=== PATIENT | female | born 1980 | race Caucasian/White ===

== ENCOUNTER → 2019-02-03 07:50 | Outpatient (CLI) | payer OTHER, SELFPAY ==
--- NOTE | 2019-02-03 07:56 | CT_ITS ---
STUDY: CT MAXILLOFACIAL SINUSES REASON FOR EXAM: Female, 38 years old. Sinusitis. RADIATION DOSAGE (If Supplied By Facility): CTDIvol = ( 33.06 ) mGy, DLP = ( 759.47 ) mGycm TECHNIQUE: The patient was scanned in a multi detector CT scanner. High resolution axial imaging was performed without the administration of intravenous contrast material. Sagittal and coronal images were reconstructed. Individualized dose optimization techniques were used for this CT. COMPARISON: None. FINDINGS: FRONTAL SINUSES: Normal aeration, without mucosal inflammatory disease. ETHMOIDAL SINUSES: Normal aeration, without mucosal inflammatory disease. MAXILLARY SINUSES: Normal aeration, without mucosal inflammatory disease. SPHENOIDAL SINUSES: Normal aeration, without mucosal inflammatory disease. There is patency of the bilateral maxillary infundibuli with normal uncinate processes, ethmoid bullae, and hiatus semilunaris. Normal bilateral middle turbinates. Normal bilateral inferior turbinates. Normal midline nasal septum. There is patency of the bilateral nasal airways. There are numerous absent teeth. The visualized osseous structures are otherwise normal. The visualized bilateral orbital contents are normal. CT/Sinus/Facial Bone IMPRESSION: Normal CT examination of the maxillofacial sinuses. Incidental note of numerous missing teeth. Electronically Signed: Jeb Dewey MD at 17:23 EDT , Service support ,
== END ==
LOC: CT 07:52
PROVIDERS: Family Provider Internal Medicine; PCP Internal Medicine; Referring Provider Otolaryngology; Visit Provider Otolaryngology
DX: J32.9 Chronic sinusitis, unspecified (principal)
CPT/HCPCS: 70486

== ENCOUNTER → 2019-03-27 13:58 | Outpatient (CLI) | payer OTHER, SELFPAY ==
[2016-12-09 18:51] VITALS: BMI 32.9
[2019-03-27 14:29] LABS: Absolute Lymphocyte Count 2.13 X10^3/uL (0.83-4.51); Absolute Neutrophil Count 5.6 X10^3/uL (2.0-7.7); Basophil# 0.05 X10^3/uL; Basophil% 0.6 % (0-1); Eosinophil# 0.09 X10^3/uL; Eosinophils% 1.1 % (0-5); Hematocrit 39.6 % (37-47); Hemoglobin 13.2 g/dL (12.0-15.0); Lymphocyte # 2.13 X10^3/ul (4.0); Lymphocyte % 25.1 % (19-41); Mean Corp Hgb Conc 33.3 g/dL (32-36); Mean Corpuscular Hgb 26.1 pg (27.0-32.0); Mean Corpuscular Volume 78.4 fL (81-99); Mean Platelet Vol. 11.3 fl (6.2-12.0); Monocyte% 7.1 % (0-10); NRBC Flagged by Analyzer 0 % (0-5); Neutrophil # 5.55 X10^3/uL (2.7-7.7); Neutrophil % 65.3 % (47-70); Platelet Count 297 K/mm3 (150-450); RBC Distribution Width CV 13.7 % (11.6-14.6); Red Blood Count 5.05 M/mm3 (4.2-5.4); White Blood Count 8.5 K/mm3 (4.4-11.0)
== END ==
PROVIDERS: Family Provider Internal Medicine; PCP Internal Medicine; Referring Provider Otolaryngology; Visit Provider Otolaryngology
DX: Z01.818 Encounter for other preprocedural examination (principal)
CPT/HCPCS: 36415; 85025

== ENCOUNTER 2020-06-06 12:59 | Emergency (ER) | payer OTHER, SELFPAY ==
[2020-06-06 13:00] VITALS: BP 165/107; PULSE 79; RESP 16; TEMP 36.4; O2SAT 98; BMI 34.7
--- NOTE | 2020-06-06 13:28 | ED.VIS.GEN ---
History of Present Illness Chief Complaint: Flank Pain Informant: Patient Narrative: 40-year-old female with history of kidney stones presenting with left flank pain. She states this started this morning. She has associated symptoms of nausea/vomiting. She has no fever or chills. No cough or cold symptoms. She states that the pain in her left flank radiates to her groin. It feels like previous kidney stone she has had. Past Medical History - Allergies and Home Meds Allergies/Adverse Reactions: Allergies No Known Allergies Allergy (Verified 06/06/20 13:01) Primary Care Physician: Alma Gomes DO [Primary Care Provider] - Past Medical History: - - Kidney stones Surgical History: noncontributory Smoking Status: Former smoker Review of Systems General: Denies: Chills, Fever, Sweats Eyes: Denies: Visual changes - bilaterally, Diplopia ENT: Denies: Rhinorrhea, Sore throat Cardiovascular: Denies: Chest pain, Palpitations Respiratory: Denies: Dyspnea, Cough, Dyspnea on exertion Gastrointestinal: Reports: Abdominal pain, Nausea, Vomiting. Denies: Diarrhea, Constipation Genitourinary: Reports: Dysuria Musculoskeletal: Reports: Back pain Skin: Denies: Rash, Abscess Neurological: Denies: Headache, Parasthesia, Numbness Physical Exam Vital Signs/Narrative: Vital Signs Temp Pulse Resp BP Pulse Ox 06/06/20 13:00 97.6 F L 79 16 165/107 H 98 Inital Vital Signs reviewed: Yes General: Well nourished, Acute Distress Head: Normocephalic, Atraumatic Eyes: Perrl ENT: Moist mucous membranes, No rhinorrhea Abdomen: Soft, Nondistended Back: CVA tenderness - Right. Negative for: Spinal tenderness Skin: Normal color, No rash, Diaphoresis. Negative for: Cyanosis Neurological: Alert, Oriented x3 Psychological: Tearful, Agitated Diagnostic/Tx/Re-eval Clinical Impression(s) from Imaging Studies Abdomen/Pelvis CT 06/06/20 14:01 IMPRESSION: Findings suggestive of a recently passed 2 mm calculus from the left ureter. The calculus is at the base of the bladder on the left side. Small umbilical hernia containing fat. Small left ovarian cyst. IUD is seen within the uterus. Stable adenoma in the left adrenal gland. Electronically Signed: Eliseo Jeffries, at 14:53 EST , Service support , Laboratory Data 06/06/20 06/06/20 13:50 14:40 Sodium 139 Potassium 3.4 L Chloride 104 Carbon Dioxide 29.0 Anion Gap 6 BUN 7 Creatinine 0.72 Estim Creat Clear Calc 82.15 Est GFR (MDRD) Af Amer 116 Est GFR (MDRD) Non-Af 96 BUN/Creatinine Ratio 9.8 L Glucose 99 Calcium 8.4 L Urine Color Yellow Urine Clarity Sl. Cloudy Urine pH 7.0 Ur Specific [place] 1.005 Urine Protein Negative Urine Glucose (UA) Normal Urine Ketones Negative Urine Occult Blood 25 H Urine Nitrite Negative Urine Bilirubin Negative Urine Urobilinogen Normal Ur Leukocyte Esterase Negative Urine RBC 0-5 SEEN Urine WBC 0 SEEN Ur Squamous Epith Cells 0-5 SEEN Urine Bacteria 1+ Urine Mucus 0 SEEN - Medical Decision Making 40-year-old female presenting with history of kidney stones and left flank pain. On my initial evaluation she was vomiting into the trash can and was diaphoretic holding her left flank. I did give her morphine, Zofran, Toradol. She had no concern for . She felt much more comfortable after being medicated. Urinalysis shows hematuria without infection. BMP unremarkable. CT abdomen pelvis without contrast shows a 2 mm stone that is passed into the bladder. Patient feels more comfortable now. She is given oxycodone prior to discharge. I will give her pain and nausea medicine for home as well. She is given return precautions. Impression: 1. Left flank pain 2. Cystoscopy with 3. Hematuria ED Disposition - Plan for ED Patient: Disposition: Home or Assisted Living Instructions: ED Kidney Stone w/ Colic Prescriptions: Tamsulosin HCl [Flomax] 0.4 mg PO DAILY #7 cap Prescription Printed Naproxen [Naprosyn] 500 mg PO BID PRN #30 tab Transmission Status: Received by [facility] Oxycodone HCl/Acetaminophen [Percocet 5/325] 1 tab PO Q6H PRN PRN 3 Days #12 tab PRN Reason: Pain Prescription Printed Ondansetron [Zofran Odt] 4 mg PO Q8H PRN PRN #14 tab PRN Reason: Nausea Prescription Printed Referrals: Alma Gomes DO [Primary Care Provider] -
[2020-06-06] MEDS: Ketorolac 15 MG/ML Vial IV (13:46)
[2020-06-06] MEDS: Ondansetron 4 MG/2 ML Vial IV (13:47)
[2020-06-06] MEDS: Morphine 4 MG/ML Syringe IV ×2 (13:47→14:38)
--- NOTE | 2020-06-06 14:01 | CT_ITS ---
STUDY: CT ABDOMEN AND PELVIS WITHOUT CONTRAST REASON FOR EXAM: Female, 40 years old. LEFT FLANK PAIN, HX [place] RADIATION DOSAGE (If Supplied By Facility): CTDIvol = ( 14.66 ) mGy, DLP = ( 711.79 ) mGycm TECHNIQUE: Transaxial images were obtained from the dome of the diaphragm to the symphysis pubis without oral contrast, and without intravenous contrast. Sagittal and coronal images were reconstructed. Individualized dose optimization techniques were used for this CT. COMPARISON: Comparison is made with prior study dated 12/09/2016. FINDINGS: The visualized lung bases are unremarkable. The visualized portions of the heart are within normal limits. There is decreased attenuation of the liver consistent with steatosis. Mild hepatomegaly. Normal gallbladder and extrahepatic biliary system. Normal spleen. Normal pancreas. There is a small, circumscribed, smooth, low attenuation left adrenal mass, consistent with an adrenal adenoma. It measures 2.2 cm. This is essentially unchanged. Normal right adrenal gland. Normal right kidney. Minimal fullness of the left renal pelvis and proximal left ureter. Normal visualized stomach. Normal small intestine. Normal colon. The appendix is visualized and appears normal. There is scattered atherosclerotic calcification of the abdominal aorta, without a demonstrated aneurysm. Normal inferior vena cava. There is borderline retroperitoneal lymphadenopathy with enlarged nodes no greater than 10mm in the short axis diameter. A 2 mm calculus is seen at the base of the bladder on the left side. This most likely represents a recently passed left ureteral calculus. IUD is seen within the uterus. There is a 2.5 cm cyst in the left ovary. A tubal ligation clip is seen in the right adnexal region. Once again, a tubal ligation clip is seen within the mesenteric fat in the right anterior abdomen. There is a small umbilical hernia containing fat. Normal osseous structures. CT/Abdomen/Pelvis without Cont IMPRESSION: Findings suggestive of a recently passed 2 mm calculus from the left ureter. The calculus is at the base of the bladder on the left side. Small umbilical hernia containing fat. Small left ovarian cyst. IUD is seen within the uterus. Stable adenoma in the left adrenal gland. Electronically Signed: Eliseo Jeffries, at 14:53 EST , Service support ,
[2020-06-06 14:15] LABS: Anion Gap 6 (5-15); BUN 7 mg/dL (7-18); BUN/Creat Ratio 9.8 RATIO (10-20); Calcium,Total 8.4 mg/dL (8.5-10.1); Chloride 104 mmol/L (98-107); Creatinine, Serum 0.72 mg/dL (0.55-1.02); EST Glomerular Filtration Rate 96 mL/min (>60); Est Glom Filt Rate - Afr Amer 116 mL/min (>60); Estimated Creatinine Clearance 82.15 ml/min; Glucose 99 mg/dL (74-106); Potassium 3.4 mmol/L (3.5-5.1); Sodium Level 139 mmol/L (136-145)
[2020-06-06 14:53] LABS: Mucous, Urine 0 SEEN /hpf (<or=2+); White Blood Cells 0 SEEN /hpf (0-5)
[2020-06-06 14:56] LABS: Color, Urine Yellow (Yellow); Glucose, Dipstick Normal (Normal); Ketone-Dipstick Negative (Negative); Leukocyte Esterase-Dipstick Negative /ul (Negative); Nitrite-Dipstick Negative (Negative); Occult Blood-Urine 25 /ul (Negative); Protein-Dipstick Negative (Negative); Specific Gravity, Urine 1.005 (1.002-1.030); Urine Bilirubin Dipstick Negative (Negative); Urine Clarity Sl. Cloudy (Clear); Urine Urobilinogen Normal (Normal)
[2020-06-06 15:00] VITALS: RESP 16
[2020-06-06 15:09] LABS: Bacteria 1+ /hpf (None Seen); Red Blood Cells-Urine 0-5 SEEN /hpf (0-5); Squamous Epithelial Cells - UA 0-5 SEEN /hpf (5-10)
[2020-06-06] MEDS: oxyCODONE 5 MG Tablet PO (15:36)
[2020-06-06 15:37] VITALS: BP 129/84; PULSE 71; RESP 16; O2SAT 97
== END 2020-06-06 15:38 | disposition home or self-care (01) ==
PROVIDERS: Emergency Provider Student in an Organized Health Care Education/Training Program; PCP Internal Medicine
DX: R10.9 Unspecified abdominal pain (principal); R31.9 Hematuria, unspecified; Z87.442 Personal history of urinary calculi; K42.9 Umbilical hernia without obstruction or gangrene; N83.202 Unspecified ovarian cyst, left side; Z97.5 Presence of (intrauterine) contraceptive device; Z87.891 Personal history of nicotine dependence
CPT/HCPCS: 74176; 80048; 81001; 99283; J7030; A4216; J2405

== ENCOUNTER 2020-06-07 00:19 | Emergency (ER) | payer OTHER, SELFPAY ==
[2020-06-06 13:00] VITALS: BMI 34.7
[2020-06-07 00:20] VITALS: BP 179/102; PULSE 80; RESP 20; TEMP 36.2; O2SAT 95; BMI 33.6
--- NOTE | 2020-06-07 00:28 | ED.VIS.GEN ---
History of Present Illness Chief Complaint: Flank Pain Informant: Patient Narrative: Patient is a 40-year-old female who presents to the emergency department for left-sided flank and abdominal pain as well as nausea/vomiting. She was seen in the emergency department earlier today and diagnosed with a kidney stone. The CT scan showed that this was recently passed and was in the bladder. She does not believe that she has passed it completely yet. She states that she was sent home with Zofran and Percocet. She took a half a Percocet but it was feeling very nauseous after taking it. She has been vomiting. Her pain is severe still. She does have history of kidney stones in the past. She feels like she has to urinate constantly. She has been feeling chills but no fever. She denies any cough. No diarrhea. Past Medical History - Allergies and Home Meds Allergies/Adverse Reactions: Allergies No Known Allergies Allergy (Verified 06/06/20 13:01) Primary Care Physician: Alma Gomes DO [Primary Care Provider] - 3-5 Days Prior records reviewed: Yes Past Medical History: None Surgical History: noncontributory Smoking Status: Never smoker Review of Systems All systems negative except as indicated General: Reports: Chills. Denies: Fever, Sweats Eyes: Denies: Visual changes - bilaterally, Diplopia ENT: Denies: Rhinorrhea, Sore throat Cardiovascular: Denies: Chest pain, Palpitations Respiratory: Denies: Dyspnea, Cough, Dyspnea on exertion Gastrointestinal: Reports: Abdominal pain, Nausea, Vomiting. Denies: Diarrhea, Melena, Hematochezia Genitourinary: Denies: Dysuria, Hematuria, Frequency Musculoskeletal: Reports: Back pain - Left flank. Denies: Extremity Pain Skin: Denies: Rash, Wounds Neurological: Denies: Headache, Weakness, Numbness Physical Exam Vital Signs/Narrative: Vital Signs Temp Pulse Resp BP Pulse Ox 06/07/20 00:20 97.1 F L 80 20 H 179/102 H 95 Inital Vital Signs reviewed: Yes General: Well nourished, Well developed, No Acute Distress Head: Normocephalic, Atraumatic Eyes: Perrl, EOMI ENT: Moist mucous membranes, No rhinorrhea Neck: Supple, Nontender Cardiovascular: Regular rate, Regular rhythm, No murmurs Respiratory: No distress, CTA bilaterally, Chest nontender Abdomen: Soft, Nontender, Nondistended, Normal bowel sounds, Tender - Left lower quadrant and left flank Back: Nontender, Normal Inspection Extremities: Nontender, No edema Skin: Normal color, No rash Neurological: Alert, Oriented x3, Normal Strength, Normal Sensation Psychological: Normal affect, Normal Mood Diagnostic/Tx/Re-eval - Medical Decision Making Patient presents to the emergency department for continued pain and nausea/vomiting after being diagnosed with a kidney stone earlier today. Upon arrival to the emergency department she is mildly hypertensive but otherwise normal vital signs. She does not appear in pain. We will start an IV and give morphine and Phenergan as she has been taking multiple doses of Zofran at home. Patient was still having pain after the morphine and Phenergan. Her nausea has subsided. Since the last dose of Toradol was approximately 10 to 12 hours ago she was redosed. She was also started on magnesium. After this treatment she is feeling much better. She does feel comfortable going home at this time. Recommend continued symptomatic treatment in the meantime and following up with her urologist. She understands and is agreeable this plan. She did tolerate soda prior to being discharged. Warning signs and symptoms for which to return to the ED were reviewed with her. All questions were answered. ED Disposition - Plan for ED Patient: Disposition: Home or Assisted Living Diagnosis: Flank pain, Nausea and vomiting Instructions: ED Kidney Stone, Passed, ED Vomiting (Adult) Referrals: Alma Gomes DO [Primary Care Provider] - 3-5 Days
[2020-06-07] MEDS: Morphine 4 MG/ML Syringe IV (00:33)
[2020-06-07] MEDS: proMETHazine 25 MG/ML Syringe 12.5 MG IV (00:33)
[2020-06-07] MEDS: Ketorolac 15 MG/ML Vial IV (01:40)
[2020-06-07 01:47] VITALS: BP 140/81; PULSE 75; RESP 16
[2020-06-07 03:42] VITALS: BP 140/88; PULSE 82; RESP 17; O2SAT 94
== END 2020-06-07 03:53 | disposition home or self-care (01) ==
PROVIDERS: Emergency Provider Emergency Medicine; PCP Internal Medicine
DX: R10.9 Unspecified abdominal pain (principal); R11.2 Nausea with vomiting, unspecified; Z87.442 Personal history of urinary calculi; R68.83 Chills (without fever)
CPT/HCPCS: 96361; 96374; 96375; 99283; J7030

== ENCOUNTER → 2020-10-24 15:45 | Outpatient (CLI) | payer OTHER, SELFPAY ==
--- NOTE | 2020-10-24 15:47 | RAD_ITS ---
STUDY: X-RAY - LEFT HAND REASON FOR EXAM: Female, 40 years old. PAIN TECHNIQUE: 2 view(s) of the hand. COMPARISON: None. FINDINGS: Normal radiocarpal articulation. Normal distal radioulnar joint. Normal visualized carpal bones. Normal carpal articulations Normal carpometacarpal articulation of the thumb. Normal second through fifth carpometacarpal joints. Normal metacarpi. Normal metacarpophalangeal joint of the thumb. Normal interphalangeal joint of the thumb. Normal proximal and distal phalanges of the thumb. Normal metacarpophalangeal joints of the second through fifth fingers. Normal proximal and distal interphalangeal joints of the second through fifth fingers. Normal phalanges of the second through fifth fingers. The soft tissue structures are unremarkable. RAD/Hand 2 Views IMPRESSION: Normal x-ray examination of the hand. Electronically Signed: Felicitas Lara MD at 3:09 EDT , Service support ,
--- NOTE | 2020-10-24 15:47 | RAD_ITS ---
STUDY: X-RAY CHEST REASON FOR EXAM: Female, 40 years old. COUGH TECHNIQUE: PA and lateral views of the chest. COMPARISON: None. FINDINGS: The lungs are clear and underexpanded. There is no demonstrated pleural abnormality. Normal size heart. Normal mediastinum and alyse. Normal visualized pulmonary arteries. Normal visualized aortic arch and descending thoracic aorta. Normal visualized thoracic spine. Normal visualized ribs, clavicles, and shoulders. There is no demonstrated abnormality of the visualized soft tissue structures of the upper abdomen. RAD/Chest PA and Lateral IMPRESSION: Decreased inspiration otherwise normal x-ray examination of the chest. Electronically Signed: Felicitas Lara MD at 2:53 EDT , Service support ,
--- NOTE | 2020-10-24 15:47 | RAD_ITS ---
STUDY: X-RAY - RIGHT HAND REASON FOR EXAM: Female, 40 years old. PAIN TECHNIQUE: 2 view(s) of the hand. COMPARISON: None. FINDINGS: Normal radiocarpal articulation. Normal distal radioulnar joint. Normal visualized carpal bones. Normal carpal articulations Normal carpometacarpal articulation of the thumb. Normal second through fifth carpometacarpal joints. Normal metacarpi. Normal metacarpophalangeal joint of the thumb. Normal interphalangeal joint of the thumb. Normal proximal and distal phalanges of the thumb. Normal metacarpophalangeal joints of the second through fifth fingers. Normal proximal and distal interphalangeal joints of the second through fifth fingers. Normal phalanges of the second through fifth fingers. The soft tissue structures are unremarkable. RAD/Hand 2 Views IMPRESSION: Normal x-ray examination of the hand. Electronically Signed: Felicitas Lara MD at 3:09 EDT , Service support ,
== END ==
PROVIDERS: PCP Internal Medicine; Referring Provider Internal Medicine; Visit Provider Internal Medicine
DX: M79.641 Pain in right hand (principal); M79.642 Pain in left hand; R05 Cough
CPT/HCPCS: 71046; 73120

== ENCOUNTER → 2021-01-02 12:15 | Outpatient (CLI) | payer OTHER, SELFPAY ==
[2021-01-11 03:07] LABS: DHEA Sulfate 95.7 ug/dL (57.3-279.2)
[2021-01-11 07:24] LABS: Renin, Plasma 1.512 ng/mL/hr (0.167-5.380)
== END ==
PROVIDERS: PCP Internal Medicine; Visit Provider Nurse Practitioner Adult Health
DX: D44.12 Neoplasm of uncertain behavior of left adrenal gland (principal)
CPT/HCPCS: 36415; 82088; 82627; 84244; 82626

== ENCOUNTER 2021-08-28 08:20 | Outpatient (CLI) | payer OTHER, SELFPAY ==
--- NOTE | 2021-08-28 08:30 | RAD_ITS ---
STUDY: X-RAY - ESOPHAGUS (BARIUM SWALLOW) WITH FLUOROSCOPY REASON FOR EXAM: Female, 41 years old. GERD TECHNIQUE: 24 view(s) of the esophagus were obtained following swallowing of barium. FLUOROSCOPY TIME (if supplied): (32 seconds) minutes/seconds COMPARISON: None. FINDINGS: There is no demonstrated esophageal foreign body. There is no demonstrated stricture or mucosal abnormality. Normal gastroesophageal junction, without a demonstrated hiatal hernia. The patient ingested a 12 mm tablet of barium without any difficulty. Normal visualized aortic arch and descending thoracic aorta. Normal visualized pulmonary parenchyma. Normal visualized osseous structures of the thorax. RAD/Esophagus Dual Contrast IMPRESSION: Normal plain film x-ray examination (barium swallow) of the esophagus. Electronically Signed: Eliseo Jeffries MD at 9:28 EST ,
== END 2021-08-28 23:59 | disposition home or self-care (01) ==
LOC: RAD 08:23
PROVIDERS: PCP Internal Medicine; Referring Provider Otolaryngology; Visit Provider Otolaryngology
DX: K21.9 Gastro-esophageal reflux disease without esophagitis (principal)
CPT/HCPCS: 74220; 74221

== ENCOUNTER → 2021-11-10 | Outpatient (CLI) | payer OTHER, SELFPAY ==
--- NOTE | 2021-11-10 09:26 | RDU_ITS ---
Reason For Study: Hypertension, Accelerated Right Renal Artery Left Renal Artery Right renal artery ostium Left renal artery ostium 131.5/26.1 147.5/34.3 RSV/EDV. PSV/EDV. Right renal artery proximal Left renal artery proximal PSV/EDV 140.2/38 PSV/EDV. 107.3/34.9 . Right renal artery mid 147.5/34.3 Left renal artery mid 127.1/37.1 PSV/EDV. PSV/EDV . Right renal artery distal 140.2/38 Left renal artery distal 153.4/43.7 PSV/EDV. PSV/EDV. Right RAR 1.62. Left RAR 1.68. Right Renal Parenchyma Left Renal Parenchyma Upper Pole Medula 27.3/10 PSV/EDV. Left upper pole medulla 32.8/12.7 Right upper pole medulla EDR 0.4 . PSV/EDV . Right upper pole medulla R.I. Left upper pole medulla EDR 0.4 . 0.64 . Left upper pole medulla R.I. 0.61 . Upper Gus Cortx 19.1/8.1 PSV/EDV. UP Cortex 20.9/9 PSV/EDV. Right upper pole cortex EDR 0.4 . Left upper pole cortex EDR 0.4 . Right upper pole cortex R.I. 0.57 . Left upper pole cortex R.I. 0.57 . Right lower Pole medulla 35.5/11.8 Left lower Pole medulla 29.1/10.9 PSV/EDV . PSV/EDV . Right lower pole medulla EDR 0.3 . Left lower pole medulla EDR 0.4 . Right lower pole medulla R.I. Left lower pole medulla R.I. 0.63 . 0.67 . Lower Pole Cortx 23.7/8.1 PSV/EDV. Lower Pole Cortex 20/6.3 PSV/EDV. Left lower pole cortex EDR 0.3 . Right lower pole cortex EDR 0.3 . Left lower pole cortex R.I. 0.66 . Right lower pole cortex R.I. 0.68 . Left Renal Hilar Right Renal Hilar LT Hilar avg 80.2/29 PSV/EDV . Right Hilar avg 106.6/30.6 PSV/EDV. Left hilar acceleration time 40 Right hilar acceleration time 40 m/sec. m/sec. Left Renal Dimensions Right Renal Dimensions Left kidney size 10.74 cm . Right kidney size 11.58 cm . Left cortical dimension 1.25 cm . Right cortical dimension 1.52 cm . Aorta Proximal abdominal aorta 1.35 x 1.33 cm . Proximal abdominal aorta peak systolic velocity is 91.2 cm/sec . Distal abdominal aorta 1.20 x 1.22 cm . Distal abdominal aorta peak systolic velocity is 135.8 cm/sec . VL/Renal Artery Duplex Ultrasound Interpretation Summary Maximal aortic diameter proximally at 1.35 x 1.33 cm in diameter which is jeffery l Less than 60% stenosis of bilateral renal arteries Maintained right renal length of 11.58 cm Maintained left renal length 10.74 cm Ordering Physician: Kierra Lowe Referring Physician: Alma Gomes M.D. Performed By: Julianna Hatfield RVT
--- NOTE | 2021-11-10 10:02 | CT_ITS ---
STUDY: CT ABDOMEN WITHOUT CONTRAST REASON FOR EXAM: Female, 41 years old. Follow-up for left adrenal nodule. RADIATION DOSAGE (If Supplied By Facility): CTDIvol = ( 15.83 ) mGy, DLP = ( 486.31 ) mGycm TECHNIQUE: Transaxial images were obtained without intravenous contrast, and without oral contrast. Sagittal and coronal images were reconstructed. Individualized dose optimization techniques were used for this CT. COMPARISON: Comparison is made with prior study 06/06/2020. FINDINGS: The visualized lung bases are unremarkable. The visualized portions of the heart are within normal limits. There is decreased attenuation of the liver consistent with steatosis. Normal gallbladder and extrahepatic biliary system. Normal spleen. Normal pancreas. There is a small, circumscribed, smooth, low attenuation left adrenal mass, consistent with an adrenal adenoma. This measures 2.2 cm x 1.3 cm. Normal right adrenal gland. Normal right kidney. Normal left kidney. Normal visualized stomach. Normal small intestine. Normal colon. The appendix is visualized and appears normal. Normal abdominal aorta. Normal inferior vena cava. There is borderline retroperitoneal lymphadenopathy with enlarged nodes no greater than 10mm in the short axis diameter. Once again, a tubal ligation clip is seen in the mesenteric fat in the right anterior abdomen. There is a small umbilical hernia containing fat. Normal osseous structures. CT/Abdomen without IV Contrast IMPRESSION: Diffuse fatty infiltration of the liver. Stable adenoma in the left adrenal gland. Electronically Signed: Eliseo Jeffries MD at 10:32 EDT ,
== END | disposition home or self-care (01) ==
PROVIDERS: PCP Internal Medicine; Visit Provider Internal Medicine
DX: I10 Essential (primary) hypertension (principal); E27.8 Other specified disorders of adrenal gland
CPT/HCPCS: 74150; 93975

== ENCOUNTER → 2021-11-23 | Outpatient (CLI) | payer OTHER, SELFPAY ==
--- NOTE | 2021-11-23 08:26 | US_ITS ---
STUDY: ULTRASOUND OF THE FEMALE PELVIS - COMPLETE REASON FOR EXAM: Female, 41 years old. ABN FACIAL HAIR LMP: 11/19/2021. TECHNIQUE: Transabdominal and Transvaginal TECHNICAL QUALITY: Adequate. COMPARISON: None. FINDINGS: The uterus is anteverted and is in a midline position. The uterus measures 8.2 cm x 4.7 cm x 4 cm. Normal uterine cervix. The endometrium measures 7.3 mm in thickness, and is . There is no demonstrated endometrial mass. There is no demonstrated myometrial mass. I.U.D. - The patient does have an I.U.D. The right ovary is visualized. The right ovary measures 2.3 cm x 2 cm x 1.8 cm. There is a 1.3 cm x 1.5 cm x 1.2 cm follicle in the ovary. There is no visualized right adnexal mass or complex lesion. There is normal arterial and normal venous vascularity. The left ovary is visualized. The left ovary measures 3 cm x 2.1 cm x 1.5 cm. There is a 1.1 cm x 1 cm x 0.8 cm ovarian follicle. There is no visualized left adnexal mass or complex lesion. There is normal arterial and normal venous vascularity. There is no fluid in the cul-de-sac. The pre void volume of the bladder was 384 ml. US/Pelvic (Non ) IMPRESSION: Small follicles are seen in both ovaries. Electronically Signed: Eliseo Jeffries MD at 10:00 EDT ,
--- NOTE | 2021-11-23 08:27 | US_ITS ---
STUDY: ULTRASOUND OF THE FEMALE PELVIS - COMPLETE REASON FOR EXAM: Female, 41 years old. ABN FACIAL HAIR LMP: 11/19/2021. TECHNIQUE: Transabdominal and Transvaginal TECHNICAL QUALITY: Adequate. COMPARISON: None. FINDINGS: The uterus is anteverted and is in a midline position. The uterus measures 8.2 cm x 4.7 cm x 4 cm. Normal uterine cervix. The endometrium measures 7.3 mm in thickness, and is . There is no demonstrated endometrial mass. There is no demonstrated myometrial mass. I.U.D. - The patient does have an I.U.D. The right ovary is visualized. The right ovary measures 2.3 cm x 2 cm x 1.8 cm. There is a 1.3 cm x 1.5 cm x 1.2 cm follicle in the ovary. There is no visualized right adnexal mass or complex lesion. There is normal arterial and normal venous vascularity. The left ovary is visualized. The left ovary measures 3 cm x 2.1 cm x 1.5 cm. There is a 1.1 cm x 1 cm x 0.8 cm ovarian follicle. There is no visualized left adnexal mass or complex lesion. There is normal arterial and normal venous vascularity. There is no fluid in the cul-de-sac. The pre void volume of the bladder was 384 ml. US/Transvaginal Non- IMPRESSION: Small follicles are seen in both ovaries. Electronically Signed: Eliseo Jeffries MD at 10:00 EDT ,
== END | disposition home or self-care (01) ==
PROVIDERS: PCP Internal Medicine; Visit Provider Internal Medicine
DX: L67.8 Other hair color and hair shaft abnormalities (principal)
CPT/HCPCS: 76830; 76856

== ENCOUNTER → 2022-08-03 | Outpatient (CLI) | payer OTHER, SELFPAY ==
[2022-08-03 17:47] LABS: Erythrocyte Sedimentation Rate 13 mm/hr (0-30)
[2022-08-03 17:49] LABS: Hematocrit 35.9 % (37-47); Hemoglobin 11.2 g/dL (12.0-15.0); Mean Corp Hgb Conc 31.2 g/dL (32-36); Mean Corpuscular Hgb 22.7 pg (27.0-32.0); Mean Corpuscular Volume 72.7 fL (81-99); Mean Platelet Vol. 12.1 fl (6.2-12.0); Platelet Count 320 K/mm3 (150-450); RBC Distribution Width CV 15.4 % (11.6-14.6); RBC Distribution Width SD 39.9 fl (35.1-43.9); Red Blood Count 4.94 M/mm3 (4.2-5.4)
[2022-08-03 18:10] LABS: Vitamin B12 > 2000 pg/mL (211-911)
[2022-08-03 18:15] LABS: ALB/GLOB Ratio 0.8 RATIO (0.9-2.4); AST(SGOT) 16 U/L (15-37); Alanine Aminotransfer ALT/SGPT 57 U/L (13-56); Albumin, Serum 3.6 g/dL (3.2-5.0); Alkaline Phosphatase 71 U/L (45-117); Anion Gap 11 (5-15); BUN 17 mg/dL (7-18); Calcium,Total 8.8 mg/dL (8.5-10.1); Chloride 102 mmol/L (98-107); Creatinine, Serum 0.65 mg/dL (0.55-1.02); EST Glomerular Filtration Rate 105 mL/min (>60); Est Glom Filt Rate - Afr Amer 128 mL/min (>60); Globulin 4.3 g/dL (2.2-4.2); Glucose 80 mg/dL (74-106); Potassium 3.3 mmol/L (3.5-5.1); Protein, Total 7.9 g/dL (6.4-8.2); Sodium Level 136 mmol/L (136-145); Thyroid Stim Hormone (TSH) 0.62 uIU/mL (0.358-3.74)
[2022-08-06 10:16] LABS: Hemoglobin A1c 5.3 % (3.8-5.6)
== END | disposition home or self-care (01) ==
LOC: MTLAB 15:27
PROVIDERS: PCP Internal Medicine; Referring Provider Internal Medicine; Visit Provider Internal Medicine
DX: E53.8 Deficiency of other specified B group vitamins (principal); R53.83 Other fatigue; R73.9 Hyperglycemia, unspecified
CPT/HCPCS: 36415; 80053; 82607; 83036; 84443; 85027; 85652; 86140

== ENCOUNTER → 2022-09-18 | Outpatient (CLI) | payer OTHER, SELFPAY ==
[2022-09-18 12:13] LABS: Absolute Lymphocyte Count 1.84 X10^3/uL (0.83-4.51); Absolute Neutrophil Count 5.7 X10^3/uL (2.0-7.7); Basophil# 0.04 X10^3/uL; Basophil% 0.5 % (0-1); Eosinophil# 0.13 X10^3/uL; Eosinophils% 1.6 % (0-5); Hematocrit 36.1 % (37-47); Hemoglobin 11.2 g/dL (12.0-15.0); Lymphocyte # 1.84 X10^3/ul (0.83-4.51); Lymphocyte % 22.5 % (19-41); Mean Corpuscular Hgb 21.9 pg (27.0-32.0); Mean Corpuscular Volume 70.6 fL (81-99); Mean Platelet Vol. 11.6 fl (6.2-12.0); Monocyte# 0.43 X10^3/uL; Monocyte% 5.3 % (0-10); NRBC Flagged by Analyzer 0 % (0-5); Neutrophil # 5.66 X10^3/uL (2.7-7.7); Neutrophil % 69.1 % (47-70); Platelet Count 293 K/mm3 (150-450); RBC Distribution Width CV 15.8 % (11.6-14.6); RBC Distribution Width SD 39.4 fl (35.1-43.9); RET-HE 22.2 pg (30-35); Red Blood Count 5.11 M/mm3 (4.2-5.4); Reticulocyte Count 1.63 % (0.5-1.5); White Blood Count 8.2 K/mm3 (4.4-11.0)
[2022-09-18 12:57] LABS: Ferritin 9 ng/mL (8-252); Iron 30 ug/dL (50-170); Iron Binding Capacity,Total 384 ug/dL (250-450); LDH 192 U/L (84-246); PERCENT IRON SATURATION 7.8 % (15.0-55.0); Potassium 3.5 mmol/L (3.5-5.1)
[2022-09-20 12:09] LABS: PROEL- Albumin 3.4 g/dL (2.9-4.4); PROEL- Alpha-1 Globulin 0.3 g/dL (0.0-0.4); PROEL- Alpha-2 Globulin 0.8 g/dL (0.4-1.0); PROEL- Beta Globulin 1.2 g/dL (0.7-1.3); PROEL- Gamma Globulin 1.2 g/dL (0.4-1.8); PROEL- Globulin, Total 3.4 g/dL (2.2-3.9); PROEL- TOTAL PROTEIN 6.8 g/dL (6.0-8.5); PROELU- Albumin, Urine 41.3 % (.); PROELU- Alpha-1-Globulin,Ur 2.9 % (.); PROELU- Alpha-2-Globulin,Ur 11.5 % (.); PROELU- Beta Globulin, Ur 25.5 % (.); PROELU- Gamma Globulin, Ur 18.7 % (.); Total Protein, Ur 9.8 mg/dL (Not Estab.)
[2022-09-20 15:32] LABS: Haptoglobin 232 mg/dL (42-296)
[2022-09-21 13:35] LABS: Methylmalonic Acid Bld 136 nmol/L (0-378)
== END | disposition home or self-care (01) ==
LOC: LAB 11:21
PROVIDERS: PCP Internal Medicine; Visit Provider Internal Medicine
DX: D64.9 Anemia, unspecified (principal); E87.6 Hypokalemia
CPT/HCPCS: 36415; 82728; 82746; 83010; 83540; 83550; 83615; 83921; 84132; 84165; 84166; 85025; 85045

== ENCOUNTER 2023-01-21 20:00 | Emergency (ER) | payer OTHER, SELFPAY ==
[2023-01-21 20:02] VITALS: BP 210/99; PULSE 88; RESP 16; TEMP 36.3; O2SAT 100; BMI 38.4
[2023-01-21 20:56] VITALS: BP 179/105; PULSE 70; RESP 17; O2SAT 99
[2023-01-21 21:00] LABS: Absolute Lymphocyte Count 2.57 X10^3/uL (0.83-4.51); Absolute Neutrophil Count 6.1 X10^3/uL (2.0-7.7); Basophil# 0.06 X10^3/uL; Basophil% 0.6 % (0-1); Eosinophil# 0.15 X10^3/uL; Eosinophils% 1.6 % (0-5); Hematocrit 34.8 % (37-47); Hemoglobin 11.1 g/dL (12.0-15.0); Lymphocyte # 2.57 X10^3/ul (0.83-4.51); Lymphocyte % 27.3 % (19-41); Mean Corp Hgb Conc 31.9 g/dL (32-36); Mean Corpuscular Hgb 22.7 pg (27.0-32.0); Mean Corpuscular Volume 71.3 fL (81-99); Mean Platelet Vol. 11.2 fl (6.2-12.0); Monocyte# 0.52 X10^3/uL; Monocyte% 5.5 % (0-10); NRBC Flagged by Analyzer 0 % (0-5); Neutrophil # 6.06 X10^3/uL (2.7-7.7); Neutrophil % 64.3 % (47-70); Platelet Count 302 K/mm3 (150-450); RBC Distribution Width CV 16.2 % (11.6-14.6); RBC Distribution Width SD 41.4 fl (35.1-43.9); Red Blood Count 4.88 M/mm3 (4.2-5.4); White Blood Count 9.4 K/mm3 (4.4-11.0)
[2023-01-21 21:18] LABS: Anion Gap 6 (5-15); BUN 10 mg/dL (7-18); BUN/Creat Ratio 15.7 RATIO (10-20); Calcium,Total 8.8 mg/dL (8.5-10.1); Chloride 104 mmol/L (98-107); Creatinine, Serum 0.64 mg/dL (0.55-1.02); EST Glomerular Filtration Rate 108 mL/min (>60); Est Glom Filt Rate - Afr Amer 131 mL/min (>60); Estimated Creatinine Clearance 90.57 ml/min; Glucose 90 mg/dL (74-106); Potassium 3.3 mmol/L (3.5-5.1); Sodium Level 138 mmol/L (136-145); Troponin-I HS 8 pg/mL (3.0-54.0)
--- NOTE | 2023-01-21 21:20 | RAD_ITS ---
INDICATION: Hypertension EXAMINATION/TECHNIQUE: X-RAY - XR Chest 2 Views COMPARISON: Prior comparison exam dated October 24, 2020, chest x-ray. FINDINGS: LINES/DEVICES: None. LUNGS: Symmetric normal lung volumes. No airspace opacity or abnormal interstitial pattern. No nodule or mass. No pleural effusion or pneumothorax. MEDIASTINUM AND CARDIOVASCULAR STRUCTURES: Normal size and contour of the cardiomediastinal silhouette. No evidence of pulmonary vascular congestion. BONES AND SOFT TISSUES: No fracture or focal osseous lesion. RAD/Chest PA and Lateral IMPRESSION: 1. No radiographic evidence of acute cardiopulmonary disease. Electronically Signed: José Luis Cotton DO at 21:37 EDT ,
--- NOTE | 2023-01-21 23:07 | EDS_ITS ---
HPI History of Present Illness Chief Complaint: Sore Throat Informant: patient Onset/Context/Timing Onset: Days (3) Context: Gradual Onset Timing: Continuous Quality: Tightness, burning Location: Chest, throat Worsened by: Swallowing Relieved by: Nothing Narrative Narrative: Patient presents with sore throat and chest tightness that has been getting worse over the last 3 days. Patient went to urgent care [facility]. Patient states they did a strep culture which was negative. Patient states that they noted her blood pressure was elevated and they referred to the emergency department. Patient admits to some tightness in her chest and burning in her throat. Patient states this has been constant. Patient states her throat pain is worse with swallowing. Patient denies any fevers or chills. Patient admits to a cough but denies any shortness of breath. [facility] Medical History (Updated 01/21/23 @ 23:[address] Efren Lee DO) ADHD Adrenal adenoma Anxiety Depression Hypertension Iron deficiency anemia Obesity Prediabetes Home Medications amlodipine 5 mg tablet 5 mg PO DAILY 11/13/22 [History Last Taken Unknown] atomoxetine 40 mg capsule 40 mg PO DAILY 11/13/22 [History Last Taken Unknown] dexamethasone 1 mg tablet 1 mg PO .once at 10 pm #1 TAB 11/13/22 [Rx Last Taken Unknown] omeprazole 40 mg capsule,delayed release 40 mg PO DAILY 11/13/22 [History Last Taken Unknown] potassium chloride 10 mEq capsule,extended release 10 meq PO DAILY 11/13/22 [History Last Taken Unknown] sertraline 100 mg tablet 150 mg PO DAILY 11/13/22 [History Last Taken Unknown] Allergy/AdvReac Type Severity Reaction Status Date / Time No Known Allergies Allergy Verified 06/06/20 13:01 Family History Mother , age 49 with sudden dt no potassium in her system Alcoholism Hypertension Potassium (K) deficiency Father Hypertension Surgical History Hx of tubal ligation Social History Smoking Status: Never smoker ROS ROS ED Constitutional Constitutional ED: Denies chills or fever(s) Eyes Eyes: Denies blurry vision or change in vision ENT ENT ED: Reports sore throat; Denies rhinorrhea Cardiovascular Cardiovascular: Denies chest pain or palpitations Respiratory/Chest Respiratory/Chest: Denies cough or dyspnea Gastrointestinal Gastrointestinal: Denies nausea or vomiting Genitourinary Genitourinary ED: Denies dysuria or hematuria Musculoskeletal Musculoskeletal: Denies back pain or neck pain Integumentary Denies abscess or rash Neurologic Neurologic: Denies headache(s) or weakness Allergic/Immunologic Allergic/Immunologic ED: Denies mouth swelling or urticaria EXAM Physical Exam Const Vital Signs: 01/21/23 20:02 01/21/23 20:56 Temperature 97.4 F L Temperature Source Temporal Pulse Rate 88 70 Respiratory Rate 16 17 Blood Pressure 210/99 H 179/105 H Blood Pressure Mean 136 129 Pulse Ox 100 99 Oxygen Delivery Method Room Air Room Air Positive well nourished and well developed General Appearance ED: well developed HEENT Reports moist mucous membranes HEENT Narrative: Oropharynx is mildly erythematous. There is no exudate noted. There is mild postnasal drainage. Neck no lymphadenopathy, supple and no JVD Resp normal respiratory effort and clear to auscultation bilaterally Cardio regular rate, regular rhythm and no murmurs GI normal to inspection, nondistended, normoactive bowel sounds and non-tender Palpation: soft Extremity normal to inspection General Extremety ED: Negative for edema or tenderness General Extremity: Negative for edema Neuro oriented x3, CN's II-XII intact bilaterally and no sensory deficits noted Sensorium / Orientation: alert Motor Exam: strength 5/5 throughout Psych mental status grossly normal Skin no rashes or lesions noted MDM MDM MDM Narrative Medical decision making narrative: Differential diagnosis includes hypertensive urgency, cardiac dysrhythmia, cardiac ischemia, electrolyte abnormality, and acute kidney injury. EKG will be obtained to assess for cardiac dysrhythmia and cardiac ischemia. Chest x-ray will be obtained to assess for widened mediastinum, pneumonia and pneumothorax. CBC will be obtained to assess for leukocytosis and anemia. Basic metabolic profile will be obtained to assess for electrolyte abnormality and renal function. High-sensitivity troponin will be obtained to assess for cardiac ischemia. History & Record Review Discussion w/independent historian: Patient Additional record(s) reviewed:: Prior labs Lab Data Attestation: I reviewed the patient's lab results. Lab results narrative: CBC was reviewed. There is a slight anemia with a hemoglobin of 11.1 and hematocrit 34.8. This was unchanged compared to previous results. Basic metabolic profile was reviewed and showed a slight hypokalemia of 3.3. High- sensitivity troponin was reviewed and was within normal limits. Labs: Laboratory Results - last 24 hr 01/21/23 20:55 WBC 9.4 RBC 4.88 Hgb 11.1 L Hct 34.8 L MCV 71.3 L MCH 22.7 L MCHC 31.9 L RDW Std Deviation 41.4 RDW Coeff of Tim 16.2 H Plt Count 302 MPV 11.2 Immature Gran % (Auto) 0.700 Neut % (Auto) 64.3 Lymph % (Auto) 27.3 [place] % (Auto) 5.5 Eos % (Auto) 1.6 Baso % (Auto) 0.6 Absolute Neuts (auto) 6.1 Absolute Lymphs (auto) 2.57 Nucleated RBC % 0 Sodium 138 Potassium 3.3 L Chloride 104 Carbon Dioxide 28.0 Anion Gap 6 BUN 10 Creatinine 0.64 Estim Creat Clear Calc 90.57 Est GFR (MDRD) Af Amer 131 Est GFR (MDRD) Non-Af 108 BUN/Creatinine Ratio 15.7 Glucose 90 Calcium 8.8 Troponin I High Sens 8 Radiography Chest X-Ray - ED: 1 View, Read by ED Physician, Read by Radiologist and No Acute Disease Diagnostic Testing: Clinical Impression(s) from Imaging Studies Chest X-Ray 01/21/23 21:20 IMPRESSION: 1. No radiographic evidence of acute cardiopulmonary disease. Electronically Signed: José Luis Cotton DO at 21:37 EDT , Portable 1 view chest x-ray was obtained. On my independent interpretation, lung kline are clear. There is normal cardiac silhouette. Bony thorax is normal. There is no acute process noted. Radiologist also interpreted the x- ray and agrees. EKG Initial EKG: Attestation: I personally reviewed and interpreted this EKG as follows: Interpretation: Sinus Rhythm (75) and No Acute Injury Pattern Comments: EKG was obtained. On my independent interpretation, it showed a normal sinus rhythm with a rate of 75. AL interval was normal at 160 ms. QRS interval was normal at 94 ms. QTc interval was slightly prolonged at 484 ms. [place] was normal. There are no acute ST or T wave changes. Treatment and Re-Evaluation :: Patient was given a dose of clonidine here. Patient's blood pressure improved after this. Patient was advised of her findings. Patient was instructed to follow-up with her primary care physician in 5 to 7 days. Patient was advised that her pharyngitis is most likely a viral infection. Patient was instructed to drink plenty of fluids. Patient was instructed to take Tylenol or ibuprofen as needed for any pain. Patient understood and was agreeable with the plan. All questions were answered. Discharge Plan Triage Chief Complaint: Sore Throat ED Provider: Efren Lee Dx/Rx/DC Orders Clinical Impression: Viral pharyngitis, Hypertension Instructions: ED Hypertension, Established, ED Pharyngitis, Viral Prescriptions: No Action omeprazole 40 mg capsule,delayed release(DR/EC) 40 mg PO DAILY atomoxetine 40 mg capsule 40 mg PO DAILY potassium chloride 10 mEq capsule, extended release 10 meq PO DAILY sertraline 100 mg tablet 150 mg PO DAILY amlodipine 5 mg tablet 5 mg PO DAILY dexamethasone 1 mg tablet 1 mg PO .once at 10 pm Qty: 1 0RF Primary Care Provider: Alma Gomes Referrals: Alma Gomes DO [Primary Care Provider] - 5-7 Days Disposition Disposition: Home, Self Care
[2023-01-21 23:20] VITALS: BP 185/108; PULSE 79; RESP 15; O2SAT 98
[2023-01-21] MEDS: cloNIDine HCl 0.1 MG Tablet PO (23:20)
[2023-01-21 23:34] VITALS: BP 166/85; PULSE 97; RESP 17; O2SAT 100
== END 2023-01-21 23:35 | disposition home or self-care (01) ==
PROVIDERS: Emergency Provider Emergency Medicine; PCP Internal Medicine; Referring Provider Internal Medicine; Visit Provider Emergency Medicine
DX: J02.8 Acute pharyngitis due to other specified organisms (principal); I10 Essential (primary) hypertension; F90.9 Attention-deficit hyperactivity disorder, unspecified type; F32.A Depression, unspecified; Z79.899 Other long term (current) drug therapy
CPT/HCPCS: 71046; 80048; 84484; 85025; 93005; 99284; A4216

== ENCOUNTER 2023-03-01 11:59 | Outpatient (RCR) | payer OTHER, SELFPAY ==
--- NOTE | 2023-03-01 12:42 | HP.PTEVAL_ITS ---
Patient's Visit Information Visit Information Visit Information: DELMAR MEJIA is a 42 year old F referred to Physical Therapy by Dr. Alma Gomes DO with a diagnosis of Tennis elbow R. Date of Evaluation: 03/01/23 Physical Therapist: Efren Noonan, DPT, OCS, CSCS Visit Plan Frequency: 1-2x /Week Duration: 4-6 Weeks Plan: Start weekly x 2-4 visits to progress HEP managemnt of brace and stretch to ecc . Pt choice due to large copay. Will increase to 2=3x/week as needed for US, STM, shockwave and progression if necessary. Check in a week or two for ecc education and monitor improvement with brace which patient will be getting adn home stretches/activity modification Subjective Subjective: I have R elbow pain that was waking her up at night. been there 3 weeks. Not sure why it started. Up to 7/10 lateral R elbow. ibuprofen helps 0/10. Taking it often. Sleep is interrupted at night, has tens unit which she uses before bed and that helps. Worse with lots of movement and twisting arm. 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 Worse during the day at work. Wakes up out of sleep sometimes. No other treatments or meds. Activities at home: taking stuff out of laundry hurts. No regular exercises. Pain R lat elbow: Pain Intensity (Out of 10): 3 Pain Intensity Range: 0 and 7 Objective Objective: R ARM HELD in protective fashion 25% of time, Moderately tender over lat epicondyle R elbow and into extensor group. Wrist extension and finger extension painful to resist but strong. flexion not painful .scap, shoulder, neck and elbow AROM WFL and without pain. supination not painful. reflexes bi and tri 2/3Sensation UE WNL to gross light touch. other UE strength 4-/5 without pain or asymmetries. Balance/Special Test Scores Quick DASH Score: 45.4525 Goals Goal 1:: patient I in ex management and brace management of R elbow pain Goal Time Frame: 4-6 Weeks Goal 2:: Pain in elbow 2/10 at worst and 80% better. Goal Time Frame: 4-6 Weeks Goal 3:: Work without increased pain Goal Time Frame: 4-6 Weeks Goal 4:: Quickdash score 15 or better. Goal Time Frame: 4-6 Weeks Rehabilitation Potential Physical Therapy Diagnosis: R tennis elbow and pain. Rehabilitation Potential: Fair Anticipated Interventions Patient/Client Instruction: Educate patient on: Condition and Plan of Care For the Purpose of:: To decrease pain, To decrease swelling/inflammation, To improve nutrient delivery to tissue, To improve muscle performance and motor function, To increase tolerance to activity/condition/position and To improve ability of physical actions for home/community/work/leisure Therapeutic Exercise to Include: Strength training, Postural training, Flexibilty training, Passive ROM and Active ROM For the Purpose of:: To decrease pain, To decrease swelling/inflammation, To improve nutrient delivery to tissue and To increase tolerance to activity/condition/position Manual Therapy Techniques to Include: Soft tissue mobilization For the Purpose of:: To decrease pain and To decrease swelling/inflammation Prosthetic, Protective Equipment: Braces For the Purpose of:: To decrease pain and To decrease swelling/inflammation Ultrasound (thermal/non thermal): Yes For the Purpose of:: To decrease swelling/inflammation Text: Thank you for the opportunity to evaluate your patient. For Medicare and Medicare HMO plans, please review the plan of care and approve it. It will need to be FAXED BACK to us at [phone] for Medicare purposes. For Medicare only, by signing this I certify the plan of care. Please let me know if there are questions or concerns regarding this plan of care. Physician Signature: Date:
--- NOTE | 2023-04-10 08:06 | HP.PT.NRP ---
Patient Information Patient Information: DELMAR MEJIA was seen in my office for initial evaluation on 03/01/23. The following Plan of Care was established for this patient: POC Established Initial Frequency: 1-2x /Week Initial Duration: 4-6 Weeks Anticipated Interventions Patient/Client Instruction: Educate patient on: Condition and Plan of Care For the Purpose of:: To decrease pain, To decrease swelling/inflammation, To improve nutrient delivery to tissue, To improve muscle performance and motor function, To increase tolerance to activity/condition/position and To improve ability of physical actions for home/community/work/leisure Therapeutic Exercise to Include: Strength training, Postural training, Flexibilty training, Passive ROM and Active ROM For the Purpose of:: To decrease pain, To decrease swelling/inflammation, To improve nutrient delivery to tissue and To increase tolerance to activity/condition/position Manual Therapy Techniques to Include: Soft tissue mobilization For the Purpose of:: To decrease pain and To decrease swelling/inflammation Prosthetic, Protective Equipment: Braces For the Purpose of:: To decrease pain and To decrease swelling/inflammation Ultrasound (thermal/non thermal): Yes For the Purpose of:: To decrease swelling/inflammation Last Seen Last Seen: This patient was last seen in our office 03/01/23. Pertinent comments regarding their Physical therapy will appear below: Pt seen for IE and POC established. she did not return for any f/u visits. It should be noted that she did have concerns regarding her large copay and that was taken into consideration with her POC. At this point, it has been over4 weeks and I will discontinue due to nonattendance. At this point I will be discontinuing this patient from physical therapy. I would be happy to see this patient again in the future if found appropriate by the physician. Thank you! Efren Noonan, DPT, OCS, CSCS Balance/Gait/Functional tests Balance/Special Test Scores Quick DASH Score: 45.4597
== END 2023-03-01 19:00 | disposition home or self-care (01) ==
LOC: PT 11:59
PROVIDERS: PCP Internal Medicine; Visit Provider Internal Medicine
DX: M77.11 Lateral epicondylitis, right elbow (principal)
CPT/HCPCS: 97110; 97161

== ENCOUNTER 2023-03-11 22:52 | Emergency (ER) | payer OTHER, SELFPAY ==
[2023-03-11 22:53] VITALS: BP 142/69; PULSE 83; RESP 16; TEMP 35.9
[2023-03-11 22:54] VITALS: BP 142/69; PULSE 83; RESP 16; TEMP 35.9; BMI 39.2
--- NOTE | 2023-03-11 23:20 | EX.ED.DYSGE1 ---
HPI History of Present Illness Chief Complaint: Back Informant: patient and spouse/S.O. Narrative Narrative: Patient is a 42-year-old female with past medical history of diabetes as well as anxiety depression and ADHD. She states she [place] and then rode her bike. She states that she bent over to pick her little 10 to 15 pound dog up out of her basket and as she did so developed pain in her left-sided low back. She states the pain is worse with any type of motion. She denies any radiation down the leg and she denies any loss of bowel or bladder control or IV drug use. She states she is taken [id number] medications without symptom improvement and therefore comes in for evaluation [facility] Medical History (Updated 03/12/23 @ 02:[address] Ian Desai DO) ADHD Adrenal adenoma Anxiety Depression Hypertension Iron deficiency anemia Obesity Prediabetes Home Medications amlodipine 5 mg tablet 5 mg PO DAILY 11/13/22 [History Last Taken Unknown] atomoxetine 40 mg capsule 40 mg PO DAILY 11/13/22 [History Last Taken Unknown] dexamethasone 1 mg tablet 1 mg PO .once at 10 pm #1 TAB 11/13/22 [Rx Last Taken Unknown] omeprazole 40 mg capsule,delayed release 40 mg PO DAILY 11/13/22 [History Last Taken Unknown] potassium chloride 10 mEq capsule,extended release 10 meq PO DAILY 11/13/22 [History Last Taken Unknown] sertraline 100 mg tablet 150 mg PO DAILY 11/13/22 [History Last Taken Unknown] methocarbamol 500 mg tablet 1,000 mg (2 x 500 mg) PO 4X/DAY PRN PRN Muscle pain/spasm #56 tabs 03/11/23 [Rx Last Taken Unknown] ondansetron 4 mg disintegrating tablet 4 mg PO TID PRN nausea and vomiting #21 tabs 03/11/23 [Rx Last Taken Unknown] oxycodone-acetaminophen 5 mg-325 mg tablet (Percocet) 1 tab PO Q6H PRN pain 3 days #12 tabs 03/11/23 [Rx Last Taken Unknown] Allergy/AdvReac Type Severity Reaction Status Date / Time No Known Allergies Allergy Verified 03/11/23 22:59 Family History Mother , age 49 with sudden dt no potassium in her system Alcoholism Hypertension Potassium (K) deficiency Father Hypertension Surgical History Hx of tubal ligation Social History Smoking Status: Former smoker ROS ROS ED Constitutional Constitutional ED: Denies chills or fever(s) ENT ENT ED: Denies sore throat Cardiovascular Cardiovascular: Denies chest pain Respiratory/Chest Respiratory/Chest: Denies cough or dyspnea Gastrointestinal Gastrointestinal: Denies abdominal pain, diarrhea, nausea or vomiting Genitourinary Genitourinary ED: Denies dysuria or hematuria Musculoskeletal Musculoskeletal: Reports back pain Integumentary Denies Abrasions or rash Neurologic Neurologic: Denies headache(s), paresthesias or weakness Hematologic/Lymphatic Hematologic/Lymphatic: Denies easy bleeding or easy bruising EXAM Physical Exam Const Vital Signs: 03/11/23 22:54 03/11/23 22:53 Temperature 96.6 F L 96.6 F L Temperature Source Temporal Temporal Pulse Rate 83 83 Respiratory Rate 16 16 Blood Pressure 142/69 H 142/69 H Blood Pressure Mean 93 93 Positive well nourished, well developed and obese General Appearance ED: well developed Nutritional Appearance: obese HEENT HEENT Narrative: Normocephalic atraumatic Eyes PERRL and EOMs intact bilaterally Neck supple Resp normal respiratory effort and clear to auscultation bilaterally Cardio regular rate and regular rhythm Rate: other Other Details: Radial and carotid pulses are equal and symmetric GI normal to inspection, nondistended, normoactive bowel sounds, non-tender, non-distended and no masses GI Narrative: No voluntary guarding or rigidity no pulsatile mass or fluid wave Auscultation: normoactive bowel sounds Palpation: soft Back/Spine no CVA tenderness Back/Spine Narrative: No bony deformity or step-off of the thoracic or lumbar spine no midline pain on palpation. No saddle anesthesia. Negative straight leg raise. No clonus or Babinski. Patellar reflexes are plus 2 out of 4 bilaterally. There is pain and spasm noted along the left paralumbar muscle belly region. Pain worsens with extension and rotation. Extremity normal to inspection Neuro oriented x3, CN's II-XII intact bilaterally and no sensory deficits noted Sensorium / Orientation: alert Psych mental status grossly normal Skin no rashes or lesions noted MDM MDM MDM Narrative Medical decision making narrative: Patient presented to the ER slightly hypertensive but otherwise with stable vitals. There was no report or signs of trauma. Differential diagnosis is for lumbosacral strain versus kidney stone versus cauda equina versus epidural abscess. Patient denies any IV drug use or loss of bowel or bladder control and therefore my concern for cauda equina or epidural abscess is low. She does have a history of kidney stone but pain is worse with motion and better at rest and there is no reported hematuria or CVA pain therefore my concern for kidney stone is low as well. History and exam is consistent with lumbosacral strain and at this time as there is no signs of neurologic involvement/neuro claudication there is no need for further work-up and she can be medicated for her symptoms and discharged home History & Record Review Discussion w/independent historian: Patient and Significant other Discharge Plan Triage Chief Complaint: Back ED Provider: Ian Desai Dx/Rx/DC Orders Clinical Impression: Acute lumbosacral myofascial strain, Diabetes Instructions: ED Back Sprain/Strain Prescriptions: New ondansetron 4 mg tablet,disintegrating 4 mg PO TID PRN (Reason: nausea and vomiting) Qty: 21 0RF methocarbamol 500 mg tablet 1,000 mg PO 4X/DAY PRN PRN (Reason: Muscle pain/spasm) Qty: 56 0RF oxycodone-acetaminophen [Percocet] 5-325 mg tablet 1 tab PO Q6H PRN (Reason: pain) 3 Days Qty: 12 0RF No Action omeprazole 40 mg capsule,delayed release(DR/EC) 40 mg PO DAILY atomoxetine 40 mg capsule 40 mg PO DAILY potassium chloride 10 mEq capsule, extended release 10 meq PO DAILY sertraline 100 mg tablet 150 mg PO DAILY amlodipine 5 mg tablet 5 mg PO DAILY dexamethasone 1 mg tablet 1 mg PO .once at 10 pm Qty: 1 0RF Stand Alone Forms: ED Work / School Excuse Primary Care Provider: Alma Gomes Referrals: Alma Gomes DO [Primary Care Provider] - Activity Restrictions/Additional Instructions: Please continue to stretch and heat your low back to help reduce pain and speed healing and return to the ER should you have any further concerns Disposition Disposition: Home, Self Care Discharge Date/Time: 03/11/23 23:56
[2023-03-11] MEDS: Ondansetron ODT 4 MG Tablet PO (23:31)
[2023-03-11] MEDS: Orphenadrine 60 MG/2 ML Ampul IM (23:31)
[2023-03-11] MEDS: Morphine 4 MG/ML Syringe 6 MG IM (23:31)
== END 2023-03-11 23:56 | disposition home or self-care (01) ==
PROVIDERS: Emergency Provider Emergency Medicine; PCP Internal Medicine; Visit Provider Emergency Medicine
DX: S39.012A Strain of muscle, fascia and tendon of lower back, initial encounter (principal); E11.9 Type 2 diabetes mellitus without complications; Z87.891 Personal history of nicotine dependence; I10 Essential (primary) hypertension; F90.9 Attention-deficit hyperactivity disorder, unspecified type; Z79.899 Other long term (current) drug therapy; F32.A Depression, unspecified; F41.9 Anxiety disorder, unspecified; X58.XXXA Exposure to other specified factors, initial encounter
CPT/HCPCS: 96372; 99283

== ENCOUNTER → 2023-03-13 | Outpatient (CLI) | payer OTHER, SELFPAY ==
--- NOTE | 2023-03-13 16:43 | RAD_ITS ---
EXAM: XR LUMBOSACRAL SPINE, 4 OR 5 VIEWS CLINICAL INDICATION: ACUTE MYOFASCIAL STRAIN OF LUMBOSACRAL REGION TECHNIQUE: Frontal, lateral and bilateral oblique views of the lumbar spine. COMPARISON: No relevant prior studies available. FINDINGS: VERTEBRAE: Slight levoscoliosis of the lumbar spine. Preserved vertebral body height. No fracture. No spondylolisthesis. No significant facet arthropathy. DISC SPACES: No acute findings. Disc spaces are maintained. GASTROINTESTINAL TRACT: Unremarkable as visualized. Included bowel gas pattern is non-obstructive. RAD/L/S Spine Min 4 Views IMPRESSION: Slight levoscoliosis of the lumbar spine. No specific acute abnormality. Electronically Signed: José Luis Leone MD at 1:45 EDT ,
== END | disposition home or self-care (01) ==
LOC: MTRAD 16:39
PROVIDERS: PCP Internal Medicine; Referring Provider Internal Medicine; Visit Provider Internal Medicine
DX: S39.012A Strain of muscle, fascia and tendon of lower back, initial encounter (principal)
CPT/HCPCS: 72110

== ENCOUNTER → 2024-11-06 | Outpatient (CLI) | payer OTHER, SELFPAY ==
--- NOTE | 2024-11-06 13:45 | RAD_ITS ---
PROCEDURE: KNEE 4 OR MORE VIEWS 11/06/2024 REASON FOR EXAM: PAIN TECHNIQUE: Four views left knee COMPARISON: None available FINDINGS: No fracture, dislocation or joint effusion. The joint spaces appear within limits. Mild spurring at the lateral patellar margin on the sunrise view. Soft tissues appear within limits. RAD/Knee 4 or More Views IMPRESSION: Mild osteoarthrosis patellofemoral compartment as above. Reading Location: [id number]
--- NOTE | 2024-11-06 13:45 | RAD_ITS ---
PROCEDURE: KNEE 4 OR MORE VIEWS 11/06/2024 REASON FOR EXAM: PAIN TECHNIQUE: Four views right knee COMPARISON: None available FINDINGS: Appearance of possible osteochondral defect central patella. Small joint effusion suggested. No fracture or dislocation. The joint spaces appear within limits. Visualized soft tissues appear within limits. RAD/Knee 4 or More Views IMPRESSION: Appearance of possible osteochondral defect central patella. Small joint effusion suggested. Reading Location: [id number]
== END | disposition home or self-care (01) ==
LOC: MTRAD 13:41
PROVIDERS: PCP Internal Medicine; Referring Provider Internal Medicine; Visit Provider Internal Medicine
DX: M25.561 Pain in right knee (principal); M25.562 Pain in left knee
CPT/HCPCS: 73564